=== PATIENT | male | born 1975 | race African-American/Black ===

== ENCOUNTER 2023-03-21 07:02 | Emergency (ER) | payer OTHER ==
[2023-03-21] MEDS ORDERED: Ketorolac Tromethamine 30 MG/ML VIAL ONE (07:34)
[2023-03-21] MEDS ORDERED: Orphenadrine Citrate 60 MG/2 ML VIAL ONE (07:34)
[2023-03-21] MEDS ORDERED: predniSONE 20 MG TAB ONE (07:34)
[2023-03-21] MEDS ORDERED: Morphine 4 MG/ML VIAL ONE (10:52)
[2023-03-21] MEDS ORDERED: Bacitracin 1 PK ONE (11:26)
== END 2023-03-21 13:06 | disposition home or self-care (01) ==
LOC: ERS 07:02
DX: S32.010A Wedge compression fracture of first lumbar vertebra, initial encounter for closed fracture (principal); V49.9XXA Car occupant (driver) (passenger) injured in unspecified traffic accident, initial encounter
CPT/HCPCS: 72100; 96372; J1885; J2270; J2360; J7512